=== PATIENT | male | born 1975 | race Caucasian/White ===

== ENCOUNTER → 2024-08-10 | Outpatient (CLI) | payer OTHER ==
[~2024-08-10] MED LIST: DOXA2TAB2 PO; HYDR100T15 PO; Isosorbide Mononitrate PO; METO100T14 PO; POTA-192 PO; SPIR25TA PO; TRAZ-144 PO
== END | disposition home or self-care (01) ==
LOC: OIH 11:40
PROVIDERS: ATTEND Internal Medicine
DX: I10 Essential (primary) hypertension (principal); M47.815 Spondylosis without myelopathy or radiculopathy, thoracolumbar region
CPT/HCPCS: 71046